=== PATIENT | male | born 1995 | race Caucasian/White ===

== ENCOUNTER 2017-10-06 10:00 | Emergency (ER) | payer OTHER ==
[2017-10-06] MEDS ORDERED: ONDANSETRON 4 MG INJ (10:30)
[2017-10-06] MEDS: SOD CHLORIDE 0.9% 1,000 ML IV ×2 (10:33→13:42)
[2017-10-06] MEDS: ONDANSETRON 4 MG INJ IV ×2 (10:33→13:42)
[2017-10-06] MEDS: FAMOTIDINE 20 MG INJ IV (10:41)
[2017-10-06] MEDS: LIDOCAINE/MYLANTA 40 ML BTL PO (10:41)
[2017-10-06 10:42] LABS: ADD MAN DIFF? NO
[2017-10-06 10:46] LABS: WHITE BLOOD COUNT 17.1 10^3/ul (4.8-10.8)
[2017-10-06 10:46] LABS: BASOPHIL # 0.1 10^3/ul (0.0-0.1); BASOPHILS % 0.4 % (0.0-2.0); EOSINOPHILS % 0.1 % (0.0-7.0); HEMOGLOBIN 16.8 g/dl (14.0-18.0); LYMPHOCYTES # 0.7 10^3/ul (0.8-2.9); LYMPHOCYTES % 3.9 % (15.0-51.0); MEAN CORPUSCULAR HEMOGLOBIN 32.2 pg (29.0-33.0); MEAN PLATELET VOLUME 11.2 fl (7.4-10.4); MONOCYTES % 5.7 % (0.0-11.0); NEUTROPHIL # 15.3 10^3/ul (1.6-7.5); NEUTROPHILS % 89.6 % (39.0-77.0); PLATELET COUNT 264 10^3/UL (140-415); RED BLOOD COUNT 5.22 10^6/ul (4.70-6.10); RED CELL DISTRIBUTION WIDTH 11.9 % (11.5-14.5)
[2017-10-06 11:15] LABS: ANION GAP 18 (8-16); BLOOD UREA NITROGEN 17 mg/dl (7-20); CARBON DIOXIDE 21 mmol/L (21-31); CHLORIDE 109 mmol/L (97-110); CREATININE 0.94 mg/dl (0.61-1.24); GLUCOSE 148 mg/dl (70-220); SODIUM 144 mmol/L (135-144)
[2017-10-06 11:26] LABS: TROPONIN-I < 0.012 ng/ml (0.000-0.120)
[2017-10-06] MEDS: FENTAnyl 50 MCG/ML VIAL IV (11:51)
[2017-10-06] MEDS: METOCLOPRAMIDE 10 MG INJ IV (11:51)
[2017-10-06] MEDS: DIPHENHYDRAMINE 50 MG INJ IV (11:53)
[2017-10-06] MEDS: IOHEXOL 300MG/ML 150 ML BTL (12:08)
[2017-10-06] MEDS: SOD CHLORIDE 0.9% 100 ML (12:09)
[2017-10-06 12:11] LABS: ALANINE AMINOTRANSFERASE 25 IU/L (13-69); ALBUMIN 5.4 g/dl (3.3-4.9); ALKALINE PHOSPHATASE 89 IU/L (42-121); ASPARTATE AMINO TRANSFERASE 34 IU/L (15-46); TOTAL PROTEIN 8.3 g/dl (6.1-8.1)
[2017-10-06 12:11] LABS: LIPASE 97 U/L (23-300)
[2017-10-06 12:59] LABS: ADD UMIC NO; UR ASCORBIC ACID NEGATIVE (NEGATIVE); UR BILIRUBIN (Dip) NEGATIVE (NEGATIVE); UR BLOOD (Dip) NEGATIVE (NEGATIVE); UR CLARITY CLEAR (CLEAR); UR COLOR STRAW (YELLOW); UR GLUCOSE (Dip) NEGATIVE (NEGATIVE); UR KETONES (Dip) NEGATIVE (NEGATIVE); UR LEUKOCYTE ESTERASE (Dip) NEGATIVE Leu/ul (NEGATIVE); UR NITRITE (Dip) NEGATIVE (NEGATIVE); UR SPECIFIC GRAVITY (Dip) 1.054 (1.003-1.030); UR TOTAL PROTEIN (Dip) NEGATIVE (NEGATIVE); UR UROBILINOGEN (Dip) NEGATIVE (NEGATIVE)
== END 2017-10-06 15:43 | disposition home or self-care (01) ==
LOC: E/R 10:00
DX: K52.9 Noninfective gastroenteritis and colitis, unspecified (principal); R11.2 Nausea with vomiting, unspecified; D72.829 Elevated white blood cell count, unspecified; R00.0 Tachycardia, unspecified; J18.1 Lobar pneumonia, unspecified organism
CPT/HCPCS: 36415; 71045; 74177; 76705; 80048; 80076; 81003; 83690; 84484; 85025; 93005; 96374; 96375; 96376; 99285-25

== ENCOUNTER 2017-10-10 13:29 | Emergency (ER) | payer SELFPAY, OTHER | END 2017-10-10 13:51 | disposition left against medical advice (07) | LOC: E/R 13:51 | DX: Z53.21 Procedure and treatment not carried out due to patient leaving prior to being seen by health care provider (principal) ==